=== PATIENT | female | born 1970 | race African-American/Black ===

== ENCOUNTER 2017-11-11 13:16 | Outpatient (CLI) | payer MEDICARE | END 2017-11-11 13:17 | disposition home or self-care (01) | LOC: BICRAD 13:16 | PROVIDERS: ATTEND Physical Medicine & Rehabilitation | DX: M25.512 Pain in left shoulder (principal) ==

== ENCOUNTER 2018-02-11 13:22 | Outpatient (CLI) | payer MEDICARE, MEDICAID | END 2018-02-11 13:23 | disposition home or self-care (01) | LOC: BICMAMMO 13:22 | DX: Z12.31 Encounter for screening mammogram for malignant neoplasm of breast (principal); R92.1 Mammographic calcification found on diagnostic imaging of breast; M15.9 Polyosteoarthritis, unspecified; Z80.3 Family history of malignant neoplasm of breast | CPT/HCPCS: 77063; 77067 ==